=== PATIENT | female | born 1970 | race Caucasian/White ===

== ENCOUNTER 2018-12-28 04:34 | Emergency (ER) | payer OTHER | END 2018-12-28 05:27 | disposition other institution (70) | LOC: ED 04:34 | DX: Z02.89 Encounter for other administrative examinations (principal) ==

== ENCOUNTER 2018-12-28 04:34 | Emergency (ER) | payer SELFPAY ==
[~2018-12-28] VITALS: Ht 162.6 cm; Wt 68.0 kg
[2018-12-28 04:40] VITALS: Ht 162.6 cm; Wt 68.0 kg
[2018-12-28 05:27] VITALS: BP 140/102
== END 2018-12-28 05:27 | disposition other institution (70) ==
LOC: ED 04:34
DX: N39.0 Urinary tract infection, site not specified (principal); G89.29 Other chronic pain; M25.561 Pain in right knee